=== PATIENT | female | born 1950 | race Caucasian/White ===

== ENCOUNTER 2020-02-10 07:56 | Outpatient (REF) | payer MEDICARE, SELFPAY ==
[2020-02-10 08:18] LABS: COVID-19 Test Negative (Negative)
== END 2020-02-10 07:57 | disposition home or self-care (01) ==
LOC: HO.LAB 07:56
PROVIDERS: Visit Provider Internal Medicine
DX: Z20.828 Contact with and (suspected) exposure to other viral communicable diseases (principal)
CPT/HCPCS: 87635

== ENCOUNTER 2020-05-16 06:27 | Outpatient (REF) | payer MEDICARE, SELFPAY | END 2020-05-16 06:28 | disposition home or self-care (01) | LOC: HO.LAB 06:27 | PROVIDERS: Visit Provider Internal Medicine | DX: Z20.822 Contact with and (suspected) exposure to COVID-19 (principal) | CPT/HCPCS: 36415; C9803; U0003 ==

== ENCOUNTER 2020-10-06 15:36 | Inpatient (IN) | payer MEDICARE, SELFPAY ==
[2020-10-06] VITALS (7 sets, daily range): BP systolic 133–163; BP diastolic 58–79; PULSE 69–87; RESP 16–18; TEMP 36.6–37; O2SAT 88–98; BMI 23.6
--- NOTE | 2020-10-06 | ECG_ITS ---
Test Reason : SOB Blood Pressure : / mmHG Vent. Rate : 069 BPM Atrial Rate : 069 BPM P-R Int : 164 ms QRS Dur : 072 ms QT Int : 386 ms P-R-T Axes : 079 081 070 degrees QTc Int : 413 ms Sinus rhythm with Sinus Arrhythmia Biatrial enlargement Anterior infarct (cited on or before 18-JUL-2017) Abnormal ECG When compared with ECG of 18-JUL-2017 12:20, No significant changes seen Referred By: Generic ED Physician Electronically Signed By:CUONG LOVE MD
--- NOTE | ~2020-10-06 | XR_ITS ---
EXAMINATION: XR CHEST CLINICAL INFORMATION: Shortness of breath COMPARISON: Previous chest x-ray most recent June 2017 TECHNIQUE: 2 views of the chest were obtained. FINDINGS: The cardiac and mediastinal contours are stable. The lungs are well inflated. The lungs are clear. There is no pleural effusion or pneumothorax. Bony structures are unremarkable. XR/XR chest 2V IMPRESSION: Well-inflated lungs. No evidence for acute disease in the chest.
--- NOTE | ~2020-10-06 | CT_ITS ---
EXAMINATION: CTA CHEST PE STUDY CLINICAL INFORMATION: Hypoxia etiology? COMPARISON: Chest x-ray this evening TECHNIQUE: Prior to contrast administration, noncontrast localization images were obtained. After the administration of 60 mL of Omnipaque 350 IV contrast, contiguous thin slice helical images were obtained through the thorax. Reformatted MIP images in the coronal and sagittal planes were obtained at the acquisition workstation. This CT examination was performed using dose optimization techniques as appropriate, variously including the following: *Automated exposure control *Adjustment of mA and/or kV according to patient size (this includes techniques or standardized protocols for targeted exams where dose is matched to indication/reason for exam; i.e. extremities or head) *Use of iterative reconstruction technique DLP: 229 mGy-cm. FINDINGS: The bolus timing on this study was acceptable for visualization of the pulmonary arterial tree. There are no intraluminal pulmonary arterial filling defects present to suggest pulmonary embolism. The lungs are clear. No abnormal pulmonary nodules or masses are appreciated. No significant hilar or mediastinal adenopathy. There is no evidence of pleural effusion or pneumothorax. The heart is normal in size. No evidence of ventricular septal bowing or right heart strain. Great vessels are normal. Otherwise the mediastinum is unremarkable. There is no pericardial effusion or pericardial thickening. Limited evaluation of the upper abdominal viscera is unremarkable. CT/CT angio chest PE protocol IMPRESSION: No evidence for pulmonary emboli. No focal airspace disease. VTE: Negative
--- NOTE | 2020-10-06 16:21 | PC.NURSE ---
2L NC applied. WC used.
[2020-10-06 16:58] LABS: Basophils Absolute Auto 0.1 X10*3/uL (0.0-0.2); Eosinophils Absolute Auto 0.1 X10*3/uL (0.0-0.4); Eosinophils Percent Auto 1.7 % (0-4); Hematocrit 48.3 % (37-47); Hemoglobin 15.5 g/dl (12.0-16.0); Imm Gran Abs Auto 0.01 X10*3/uL (0.00-0.03); Imm Gran Pct Auto 0.1 % (0.0-0.4); Lymphocytes Absolute Auto 1.8 X10*3/uL (1.2-4.9); Lymphocytes Percent Auto 25.5 % (20-40); MANUAL DIFF FLAG NO; Mean Corpuscular HGB Conc 32.1 g/dl (31.0-35.0); Mean Corpuscular Hemoglobin 29.4 pg (27.0-33.0); Mean Corpuscular Volume 91.5 fL (80-98); Mean Platelet Volume 10.4 fL (9.4-12.3); Monocytes Absolute Auto 0.6 X10*3/uL (0.1-1.2); Monocytes Percent Auto 8.3 % (2-11); Neutrophils Absolute Auto 4.5 X10*3/uL (2.0-8.3); Neutrophils Percent Auto 63.4 % (45-73); Platelet Count 197 X10*3/uL (160-400); Red Blood Count 5.28 X10*6/uL (4.20-5.50); Red Cell Distribution Width 13.1 % (11.0-16.0); White Blood Count 7.1 X10*3/uL (4.8-10.8)
[2020-10-06 17:33] LABS: Alanine Aminotransferase 11 U/L (0-31); Albumin Level 4.4 g/dL (3.5-5.0); Alkaline Phosphatase 101 U/L (39-117); Anion Gap 13 (12-20); Aspartate Amino Transferase 19 U/L (5-31); Bilirubin Total 0.4 mg/dL (0.0-1.0); Blood Urea Nitrogen 7 mg/dL (9-16); Calcium 9.9 mg/dL (8.4-10.2); Carbon Dioxide 36 mmol/L (22-29); Chloride 100 mmol/L (96-108); Creatinine Clr Calc Pharmacy 69.7; Estimated Glomerular Filt Rate > 60; Glucose Random 98 mg/dL (60-115); Potassium 5.5 mmol/L (3.3-5.1); Sodium 143 mmol/L (135-145); Total Protein 7.5 g/dL (6.5-8.0)
[2020-10-06 17:37] LABS: Troponin-I High Sensitivity < 3.5 ng/L (<3.5-17.0)
--- NOTE | 2020-10-06 17:42 | ED.SOB ---
HPI - SOB/Dyspnea General Chief Complaint: General Medical Stated Complaint: Stroke? Time Seen by Provider: 10/06/20 16:01 Source: patient Mode of arrival: ambulatory Limitations: no limitations History of Present Illness HPI Narrative: Patient with no known medical history chronic smoker has not seen her PCP in last 10 years seen MD in the ED 2 years ago for bronchitis, not on any medication been having for few months palpitation episode noticed left scapular pain and left arm pain for last 1 week also noticed increased shortness of breath especially on ambulation. Feels chest tight. Patient does have disc episodes of palpitation off and on without any syncope. Has off and on dizziness spells. Also for last 4 months noticed her right eye she has problem in the lateral vision and vision overall is blurred, patient wear glasses and last visit to deburr operator was 7 years ago. When patient arrived to the ER she was saturating 88% at room air. Patient denies any leg swelling syncope episode any focal weakness diaphoresis night sweats Related Data Home Medications Medication Instructions Recorded Confirmed No Known Home Meds 10/06/20 10/06/20 Allergies Allergy/AdvReac Type Severity Reaction Status Date / Time No Known Allergies Allergy Verified 10/06/20 22:17 [No Known Allergies*] Review of Systems Review of Systems: Constitutional : No Weight loss, No Fever, No Chills ENT/Mouth : No sore throat, No Rhinorrhea Eyes: No Eye Pain, No Swelling vision problem r eye+ Cardiovascular : No Chest Pain, ++ palpitations Respiratory : No Cough, No Sputum, no shortness of breath Gastrointestinal : no Nausea, No Vomiting, No Diarrhea, No abdominal Pain, no black stools Genitourinary : No Dysuria, No Urinary Frequency Musculoskeletal : No joint pain, No Myalgias, No Joint Swelling Skin : No Skin Lesions, No rash Neuro : No Weakness, No Numbness, No Dizziness, No Headache Psych : No Anxiety/Panic, No Depression Heme/Lymph: No Bruising, No Lymphadenopathy Endocrine : No Polyuria, No Polydipsia All other systems reviewed and are negative [facility] Social History Social History Advance Directives: No Advance Directives Information Provided: Yes Physical Exam Vital Signs: Vital Signs: Last Vital Signs Temp 98.1 F 10/06/20 21:53 Pulse 76 10/06/20 21:53 Resp 16 10/06/20 21:53 BP 163/70 H 10/06/20 21:53 Pulse Ox 92 10/06/20 21:53 Body Mass Index 23.6 Appearance: Alert. Oriented X3. No acute distress. Eyes: PERRLA, No Nystagmus fundus benign b/l ENT: Pharynx normal. Oral Mucosa moist Neck: Normal inspection. Neck supple. CVS: Normal heart rate and rhythm. Pulses normal. Respiratory: No respiratory distress. Equal air entry bilateral, no wheezing/rales/rhonchi Abdomen: Soft and nontender. Bowel sounds are present, no mass palpable, no CVA tenderness Skin: Skin warm and dry. Normal skin color. Normal skin turgor. Extremities: No lower extremity edema. No calf tenderness Neuro: Oriented X 3. No motor deficit. No sensory deficit.No cerebellar signs , cranial nerves II-XII intact history MDM - SOB/Dyspnea MDM Narrative Medical decision making narrative: Patient is smoker with significant shortness of breath especially on exertion normal BNP normal chest x-ray normal CTA chest no PE symptoms likely from chronic lung disease from smoking patient saturation dropped to 85% on ambulation patient does not have any oxygen at home. Will admit patient for chronic lung disease and hypoxia patient does not have any signs of infection Lab Data Attestation: I reviewed the patient's lab results. Result diagrams: 10/06/20 16:51 10/06/20 16:51 Labs: Lab Results 10/06/20 10/06/20 10/06/20 Range/Units 16:51 16:51 16:51 WBC 7.1 (4.8-10.8) X10*3/uL RBC 5.28 (4.20-5.50) X10*6/uL Hgb 15.5 (12.0-16.0) g/dl Hct 48.3 H (37-47) % MCV 91.5 (80-98) fL MCH 29.4 (27.0-33.0) pg MCHC 32.1 (31.0-35.0) g/dl RDW 13.1 (11.0-16.0) % Plt Count 197 (160-400) X10*3/uL MPV 10.4 (9.4-12.3) fL Immature Gran % (Auto) 0.1 (0.0-0.4) % Neut % (Auto) 63.4 (45-73) % Lymph % (Auto) 25.5 (20-40) % [place] % (Auto) 8.3 (2-11) % Eos % (Auto) 1.7 (0-4) % Baso % (Auto) 1.0 (0-2) % Lymph # (Auto) 1.8 (1.2-4.9) X10*3/uL [place] # (Auto) 0.6 (0.1-1.2) X10*3/uL Eos # (Auto) 0.1 (0.0-0.4) X10*3/uL Baso # (Auto) 0.1 (0.0-0.2) X10*3/uL Abs Immat Gran (auto) 0.01 (0.00-0.03) X10*3/uL Absolute Neuts (auto) 4.5 (2.0-8.3) X10*3/uL Absolute Nucleated RBC 0.000 (0.0-0.012) X10*3/uL Nucleated RBC % (auto) 0.0 (0.0-0.2) /100WBC PT (10.8-13.0) SEC INR (0.9-1.1) APTT (24.1-38.0) SEC D-Dimer NG/ML Sodium 143 (135-145) mmol/L Potassium 5.5 H (3.3-5.1) mmol/L Chloride 100 (96-108) mmol/L Carbon Dioxide 36 H (22-29) mmol/L Anion Gap 13 (12-20) BUN 7 L (9-16) mg/dL Creatinine 0.73 (0.5-1.4) mg/dL Estim Creat Clear Calc 69.7 Estimated GFR > 60 Random Glucose 98 (60-115) mg/dL Calcium 9.9 (8.4-10.2) mg/dL Total Bilirubin 0.4 (0.0-1.0) mg/dL AST 19 (5-31) U/L ALT 11 (0-31) U/L Alkaline Phosphatase 101 (39-117) U/L Troponin I High Sens < 3.5 (<3.5-17.0) ng/L B-Natriuretic Peptide (<100) pg/mL Total Protein 7.5 (6.5-8.0) g/dL Albumin 4.4 (3.5-5.0) g/dL Urine Color Urine Appearance Urine pH (5.0-8.0) Ur Specific [place] (1.005-1.025) Urine Protein (NEG-TRACE) MG/DL Urine Glucose (UA) (NEG) MG/DL Urine Ketones (NEG) MG/DL Urine Blood (NEG) Urine Nitrite (NEG) Ur Leukocyte Esterase (NEG) Urine RBC (0) /HPF Urine WBC (0-4) /HPF Ur Squamous Epith Cells /LPF Urine Bacteria /LPF Urine Mucus /LPF COVID-19 ([facility]) (Negative) COVID-19 Clin Com 10/06/20 10/06/20 10/06/20 Range/Units 16:51 18:20 20:46 WBC (4.8-10.8) X10*3/uL RBC (4.20-5.50) X10*6/uL Hgb (12.0-16.0) g/dl Hct (37-47) % MCV (80-98) fL MCH (27.0-33.0) pg MCHC (31.0-35.0) g/dl RDW (11.0-16.0) % Plt Count (160-400) X10*3/uL MPV (9.4-12.3) fL Immature Gran % (Auto) (0.0-0.4) % Neut % (Auto) (45-73) % Lymph % (Auto) (20-40) % [place] % (Auto) (2-11) % Eos % (Auto) (0-4) % Baso % (Auto) (0-2) % Lymph # (Auto) (1.2-4.9) X10*3/uL [place] # (Auto) (0.1-1.2) X10*3/uL Eos # (Auto) (0.0-0.4) X10*3/uL Baso # (Auto) (0.0-0.2) X10*3/uL Abs Immat Gran (auto) (0.00-0.03) X10*3/uL Absolute Neuts (auto) (2.0-8.3) X10*3/uL Absolute Nucleated RBC (0.0-0.012) X10*3/uL Nucleated RBC % (auto) (0.0-0.2) /100WBC PT 12.1 (10.8-13.0) SEC INR 1.0 (0.9-1.1) APTT 34.1 (24.1-38.0) SEC D-Dimer < 200 NG/ML Sodium (135-145) mmol/L Potassium (3.3-5.1) mmol/L Chloride (96-108) mmol/L Carbon Dioxide (22-29) mmol/L Anion Gap (12-20) BUN (9-16) mg/dL Creatinine (0.5-1.4) mg/dL Estim Creat Clear Calc Estimated GFR Random Glucose (60-115) mg/dL Calcium (8.4-10.2) mg/dL Total Bilirubin (0.0-1.0) mg/dL AST (5-31) U/L ALT (0-31) U/L Alkaline Phosphatase (39-117) U/L Troponin I High Sens (<3.5-17.0) ng/L B-Natriuretic Peptide 32 (<100) pg/mL Total Protein (6.5-8.0) g/dL Albumin (3.5-5.0) g/dL Urine Color YELLOW Urine Appearance CLEAR Urine pH 7.0 (5.0-8.0) Ur Specific [place] 1.010 (1.005-1.025) Urine Protein NEG (NEG-TRACE) MG/DL Urine Glucose (UA) NEG (NEG) MG/DL Urine Ketones NEG (NEG) MG/DL Urine Blood NEG (NEG) Urine Nitrite NEG (NEG) Ur Leukocyte Esterase 1+ H (NEG) Urine RBC 0-2 (0) /HPF Urine WBC 1-4 (0-4) /HPF Ur Squamous Epith Cells 2+ /LPF Urine Bacteria TRACE /LPF Urine Mucus TRACE /LPF COVID-19 ([facility]) (Negative) COVID-19 Clin Com 10/06/20 Range/Units 21:04 WBC (4.8-10.8) X10*3/uL RBC (4.20-5.50) X10*6/uL Hgb (12.0-16.0) g/dl Hct (37-47) % MCV (80-98) fL MCH (27.0-33.0) pg MCHC (31.0-35.0) g/dl RDW (11.0-16.0) % Plt Count (160-400) X10*3/uL MPV (9.4-12.3) fL Immature Gran % (Auto) (0.0-0.4) % Neut % (Auto) (45-73) % Lymph % (Auto) (20-40) % [place] % (Auto) (2-11) % Eos % (Auto) (0-4) % Baso % (Auto) (0-2) % Lymph # (Auto) (1.2-4.9) X10*3/uL [place] # (Auto) (0.1-1.2) X10*3/uL Eos # (Auto) (0.0-0.4) X10*3/uL Baso # (Auto) (0.0-0.2) X10*3/uL Abs Immat Gran (auto) (0.00-0.03) X10*3/uL Absolute Neuts (auto) (2.0-8.3) X10*3/uL Absolute Nucleated RBC (0.0-0.012) X10*3/uL Nucleated RBC % (auto) (0.0-0.2) /100WBC PT (10.8-13.0) SEC INR (0.9-1.1) APTT (24.1-38.0) SEC D-Dimer NG/ML Sodium (135-145) mmol/L Potassium (3.3-5.1) mmol/L Chloride (96-108) mmol/L Carbon Dioxide (22-29) mmol/L Anion Gap (12-20) BUN (9-16) mg/dL Creatinine (0.5-1.4) mg/dL Estim Creat Clear Calc Estimated GFR Random Glucose (60-115) mg/dL Calcium (8.4-10.2) mg/dL Total Bilirubin (0.0-1.0) mg/dL AST (5-31) U/L ALT (0-31) U/L Alkaline Phosphatase (39-117) U/L Troponin I High Sens (<3.5-17.0) ng/L B-Natriuretic Peptide (<100) pg/mL Total Protein (6.5-8.0) g/dL Albumin (3.5-5.0) g/dL Urine Color Urine Appearance Urine pH (5.0-8.0) Ur Specific [place] (1.005-1.025) Urine Protein (NEG-TRACE) MG/DL Urine Glucose (UA) (NEG) MG/DL Urine Ketones (NEG) MG/DL Urine Blood (NEG) Urine Nitrite (NEG) Ur Leukocyte Esterase (NEG) Urine RBC (0) /HPF Urine WBC (0-4) /HPF Ur Squamous Epith Cells /LPF Urine Bacteria /LPF Urine Mucus /LPF COVID-19 ([facility]) Negative (Negative) COVID-19 Clin Com See Note Imaging Data CT scan - chest: Radiologist's impression: Patient: Mayte Gomez#: [id number]: 1950Acct:[id number]/Sex: 70 / FADM Date: 10/06/20Loc: [address] Dr: Ordering Physician: Michael Pool MD Date of Service: 10/06/20 Procedure(s): CT angio chest PE protocol Accession Number(s): [id number] cc: Michael Pool MD~ EXAMINATION: CTA CHEST PE STUDY CLINICAL INFORMATION: Hypoxia etiology? COMPARISON: Chest x-ray this evening TECHNIQUE: Prior to contrast administration, noncontrast localization images were obtained. After the administration of 60 mL of Omnipaque 350 IV contrast, contiguous thin slice helical images were obtained through the thorax. Reformatted MIP images in the coronal and sagittal planes were obtained at the acquisition workstation. This CT examination was performed using dose optimization techniques as appropriate, variously including the following: *Automated exposure control *Adjustment of mA and/or kV according to patient size (this includes techniques or standardized protocols for targeted exams where dose is matched to indication/reason for exam; i.e. extremities or head) *Use of iterative reconstruction technique DLP: 229 mGy-cm. FINDINGS: The bolus timing on this study was acceptable for visualization of the pulmonary arterial tree. There are no intraluminal pulmonary arterial filling defects present to suggest pulmonary embolism. The lungs are clear. No abnormal pulmonary nodules or masses are appreciated. No significant hilar or mediastinal adenopathy. There is no evidence of pleural effusion or pneumothorax. The heart is normal in size. No evidence of ventricular septal bowing or right heart strain. Great vessels are normal. Otherwise the mediastinum is unremarkable. There is no pericardial effusion or pericardial thickening. Limited evaluation of the upper abdominal viscera is unremarkable. CT/CT angio chest PE protocol IMPRESSION: No evidence for pulmonary emboli. No focal airspace disease. VTE: Negative Dictated By:MERRY GARDINER MDSigned By:<Electronically signed by MERRY GARDINER MD in OV> ECG Data Attestation: I personally reviewed and interpreted this ECG as follows: Interpretation: Normal sinus rhythm heart rate 69 beats per minute poor progression of R-waves no acute ST T wave changes no acute ischemia Discharge Plan Discharge Clinical Impression: Exertional shortness of breath, Chronic lung disease Patient Disposition: Admitted As Inpatient
[2020-10-06] MEDS: Albuterol/Iprat 2.5/0.5MG 3 ML AMPUL.NEB INHALE (17:51)
[2020-10-06 18:32] LABS: Prothrombin Time 12.1 SEC (10.8-13.0)
[2020-10-06 18:35] LABS: Partial Thromboplastin Time 34.1 SEC (24.1-38.0)
[2020-10-06 18:37] LABS: D Dimer < 200 NG/ML
[2020-10-06 18:51] LABS: B Type Natriuretic Peptide 32 pg/mL (<100)
[2020-10-06] MEDS: methylPREDNISolone Sod Succ 125 MG/2 ML VIAL IVPUSH (19:32)
[2020-10-06] MEDS: Ketorolac Tromethamine 15 MG/ML VIAL IVPUSH (19:33)
--- NOTE | 2020-10-06 19:50 | PC.NURSE ---
Patient ambulated with steady gait to bathroom and back, but reports feeling unsteady . Trialed patient on room air, oxygen saturation dropped to 85% on room air. aware/notified. Likely plan for admission.
[2020-10-06] MEDS: iohexoL 350 MG/ML 100 ML INFUS..BTL IV (20:23)
[2020-10-06 20:55] LABS: Glucose Urine UA NEG (NEG); Leukocyte Esterase Urine 1+ (NEG); Nitrite Urine NEG (NEG); UACC Culture Trigger YES; Urine Blood NEG (NEG); Urine Ketones NEG (NEG); Urine Protein NEG (NEG-TRACE)
[2020-10-06 20:57] LABS: Appearance Urine CLEAR; Color Urine YELLOW
[2020-10-06 21:05] LABS: Bacteria Urine TRACE /LPF; Mucus Urine TRACE /LPF; RBC Urine 0-2 /HPF (0); Squamous Epithelial Cell Urine 2+ /LPF
[2020-10-06 21:27] LABS: COVID-19 Test Negative (Negative)
--- NOTE | 2020-10-06 22:24 | PM.IMHP ---
History of Present Illness Date of Service: 10/06/20 Chief Complaint: Shortness of breath 70-year-old female with a past medical history of tobacco dependence presented to the hospital with a chief complaint of shortness of breath. Patient reports that over the past few days she has been having shortness of breath which has been gradually worsening; worse on exertion. Patient also reports she has intermittent episodes of dizziness. Patient reported that over the past 4 months she has been having blurry vision with black spots in her right eye occasionally; denies any headaches numbness to. Denies any numbness or tingling. Patient also reported she has pain on the back of her left shoulder; Denies any fall loss of consciousness. Mentions that she had COVID vaccination done. Denies any sore throat. Denies any recent travel or sick contacts. Reports she smokes cigarettes daily. Denies any alcohol or illicit drug use. Review of all other systems is negative except mentioned above ER course: Per ER team patient's exam was benign; CTA chest showed no acute findings. Patient on ambulation was saturating 85% on room air; admitted to the hospital for further management PMFSH Social History Household Members: None Housing: Apartment Do you presently have visiting nurse or other home services: No Patient Tobacco Use Status: Current someday Tobacco user Tobacco use type: Cigarette Cigarette Packs Per Day: 1 Cigarettes Per Day: 20.0 service: No Current occupational status: retired Meds Allergies Allergy/AdvReac Type Severity Reaction Status Date / Time No Known Allergies Allergy Verified 10/06/20 22:17 [No Known Allergies*] Active Medications: Current Medications Generic Name Dose Route Start Last Admin Trade Name Freq PRN Reason Stop Dose Admin Acetaminophen 650 mg 10/06/20 22:19 Acetaminophen 325 Mg Tablet PO Q6H PRN Pain, Mild (Pain Scale 1-3) Albuterol/Ipratropium 3 ml 10/07/20 08:00 Albuterol/Iprat 2.5/0.5mg 3 Ml Ampul.Neb INHALE RQ4H WHILE AWAKE OSCAR Albuterol/Ipratropium 3 ml 10/06/20 22:19 Albuterol/Iprat 2.5/0.5mg 3 Ml Ampul.Neb INHALE RQ4H PRN Shortness of Breath/Wheezing Enoxaparin Sodium 40 mg 10/06/20 22:30 Enoxaparin Sodium 40 Mg/0.4 Ml Syringe SUBCUT Q24H [facility] Famotidine 20 mg 10/07/20 21:00 Famotidine 20 Mg Tablet PO BEDTIME [facility] Methylprednisolone Sodium Succinate 40 mg 10/06/20 22:30 Methylprednisolone Sod Succ 40 Mg/Ml Vial IVPUSH Q8H [facility] Sodium Chloride 3 ml 10/07/20 00:00 0.9 % Sodium Chloride Flush 3 Ml Syringe IVFLUSH QSHIFT [facility] Physical Exam Vital Signs and Narrative: Vital Signs: Last Vital Signs Temp 98.1 F 10/06/20 21:53 Pulse 76 10/06/20 21:53 Resp 16 10/06/20 21:53 BP 163/70 H 10/06/20 21:53 Pulse Ox 92 10/06/20 21:53 Body Mass Index 23.6 Gen: Appears be in no acute distress HEENT: NCAT, Moist mucosa. Pulmonary: Slightly diminished CVS: Normal S1-S2 Abdomen: BS+, Soft, Nontender Extremities: Warm well perfused Neuro: Alert and awake. Results Labs CBC and Chem 7: 10/07/20 04:32 10/07/20 04:32 Labs: Laboratory Results - last 24 hr 10/06/20 10/06/20 10/06/20 16:51 16:51 16:51 MCV 91.5 MCH 29.4 MCHC 32.1 RDW 13.1 Plt Count 197 MPV 10.4 Immature Gran % (Auto) 0.1 Neut % (Auto) 63.4 Lymph % (Auto) 25.5 [place] % (Auto) 8.3 Eos % (Auto) 1.7 Baso % (Auto) 1.0 Lymph # (Auto) 1.8 [place] # (Auto) 0.6 Eos # (Auto) 0.1 Baso # (Auto) 0.1 Abs Immat Gran (auto) 0.01 Absolute Neuts (auto) 4.5 Absolute Nucleated RBC 0.000 Nucleated RBC % (auto) 0.0 PT INR APTT D-Dimer Anion Gap 13 Estim Creat Clear Calc 69.7 Estimated GFR > 60 Random Glucose 98 Calcium 9.9 Total Bilirubin 0.4 AST 19 ALT 11 Alkaline Phosphatase 101 Troponin I High Sens < 3.5 B-Natriuretic Peptide Total Protein 7.5 Albumin 4.4 Urine Color Urine Appearance Urine pH Ur Specific [place] Urine Protein Urine Glucose (UA) Urine Ketones Urine Blood Urine Nitrite Ur Leukocyte Esterase Urine RBC Urine WBC Ur Squamous Epith Cells Urine Bacteria Urine Mucus COVID-19 ([facility]) COVID-19 Opendisc Com 10/06/20 10/06/20 10/06/20 16:51 18:20 20:46 MCV MCH MCHC RDW Plt Count MPV Immature Gran % (Auto) Neut % (Auto) Lymph % (Auto) [place] % (Auto) Eos % (Auto) Baso % (Auto) Lymph # (Auto) [place] # (Auto) Eos # (Auto) Baso # (Auto) Abs Immat Gran (auto) Absolute Neuts (auto) Absolute Nucleated RBC Nucleated RBC % (auto) PT 12.1 INR 1.0 APTT 34.1 D-Dimer < 200 Anion Gap Estim Creat Clear Calc Estimated GFR Random Glucose Calcium Total Bilirubin AST ALT Alkaline Phosphatase Troponin I High Sens B-Natriuretic Peptide 32 Total Protein Albumin Urine Color YELLOW Urine Appearance CLEAR Urine pH 7.0 Ur Specific [place] 1.010 Urine Protein NEG Urine Glucose (UA) NEG Urine Ketones NEG Urine Blood NEG Urine Nitrite NEG Ur Leukocyte Esterase 1+ H Urine RBC 0-2 Urine WBC 1-4 Ur Squamous Epith Cells 2+ Urine Bacteria TRACE Urine Mucus TRACE COVID-19 ([facility]) COVID-19 Opendisc Com 10/06/20 21:04 MCV MCH MCHC RDW Plt Count MPV Immature Gran % (Auto) Neut % (Auto) Lymph % (Auto) [place] % (Auto) Eos % (Auto) Baso % (Auto) Lymph # (Auto) [place] # (Auto) Eos # (Auto) Baso # (Auto) Abs Immat Gran (auto) Absolute Neuts (auto) Absolute Nucleated RBC Nucleated RBC % (auto) PT INR APTT D-Dimer Anion Gap Estim Creat Clear Calc Estimated GFR Random Glucose Calcium Total Bilirubin AST ALT Alkaline Phosphatase Troponin I High Sens B-Natriuretic Peptide Total Protein Albumin Urine Color Urine Appearance Urine pH Ur Specific [place] Urine Protein Urine Glucose (UA) Urine Ketones Urine Blood Urine Nitrite Ur Leukocyte Esterase Urine RBC Urine WBC Ur Squamous Epith Cells Urine Bacteria Urine Mucus COVID-19 ([facility]) Negative COVID-19 Clin Com See Note Imaging Radiologist's Impressions: Impressions Chest X-Ray 10/06/20 16:40 IMPRESSION: Well-inflated lungs. No evidence for acute disease in the chest. Chest CTA 10/06/20 19:56 IMPRESSION: No evidence for pulmonary emboli. No focal airspace disease. VTE: Negative Assessment and Plan (1) Hypoxia: Status: Acute 70-year-old female with a past medical history tobacco dependence presented to the hospital with a chief complaint of shortness of breath. Shortness of breath: Patient has slightly diminished breath sounds. Patient has tobacco dependence. Question mild COPD. Will keep the patient on Solu-Medrol and nebulizations. Pulmonology consult. Initial troponin negative; follow-up troponin pending EKG nonischemic. Patient currently denies any chest pain. Patient pain on the left shoulder blade use reproducible. Likely musculoskeletal. Will also obtain an echocardiogram. COVID-[address] chest negative for any pulmonary embolism or pneumonia. Dizziness: PT/OT eventually. Grossly nonfocal exam. Will obtain MRI brain and MRA head and neck. Blurry vision: Patient reports her symptoms have been going on for past 4 months. Denies any eye pain. Recommended close follow-up with Ophthalmology. DVT prophylaxis: Lovenox Code status: Full code
[2020-10-07] VITALS (12 sets, daily range): BP systolic 124–151; BP diastolic 58–81; PULSE 68–120; RESP 18–20; TEMP 36.1–36.7; O2SAT 90–106
[2020-10-07] MEDS: methylPREDNISolone Sod Succ 40 MG/ML VIAL IVPUSH ×4 (00:47→21:38)
[2020-10-07] MEDS: Enoxaparin Sodium 40 MG/0.4 ML SYRINGE SUBCUT ×2 (00:47→21:38)
[2020-10-07] MEDS: 0.9 % Sodium Chloride Flush 3 ML SYRINGE IVFLUSH ×3 (00:47→21:39)
[2020-10-07 05:25] LABS: Basophils Percent Auto 0.3 % (0-2); Hematocrit 51.8 % (37-47); Hemoglobin 16.3 g/dl (12.0-16.0); Imm Gran Abs Auto 0.02 X10*3/uL (0.00-0.03); Imm Gran Pct Auto 0.3 % (0.0-0.4); Lymphocytes Absolute Auto 0.7 X10*3/uL (1.2-4.9); Lymphocytes Percent Auto 9.9 % (20-40); MANUAL DIFF FLAG SCAN; Mean Corpuscular HGB Conc 31.5 g/dl (31.0-35.0); Mean Corpuscular Hemoglobin 28.8 pg (27.0-33.0); Mean Corpuscular Volume 91.5 fL (80-98); Mean Platelet Volume 10.7 fL (9.4-12.3); Monocytes Percent Auto 0.6 % (2-11); Neutrophils Absolute Auto 6.1 X10*3/uL (2.0-8.3); Neutrophils Percent Auto 88.9 % (45-73); Platelet Count 229 X10*3/uL (160-400); Red Blood Count 5.66 X10*6/uL (4.20-5.50); SCAN SMEAR FLAG 1; White Blood Count 6.9 X10*3/uL (4.8-10.8)
[2020-10-07 05:52] LABS: SLIDE REVIEW VERIFIED
[2020-10-07 05:57] LABS: Alanine Aminotransferase 16 U/L (0-31); Albumin Level 4.6 g/dL (3.5-5.0); Alkaline Phosphatase 105 U/L (39-117); Anion Gap 20 (12-20); Aspartate Amino Transferase 21 U/L (5-31); Bilirubin Total 0.4 mg/dL (0.0-1.0); Blood Urea Nitrogen 12 mg/dL (9-16); Calcium 9.7 mg/dL (8.4-10.2); Carbon Dioxide 28 mmol/L (22-29); Chloride 97 mmol/L (96-108); Cholesterol 302 mg/dL; Creatinine Clr Calc Pharmacy 64.4; Estimated Glomerular Filt Rate > 60; Glucose Random 159 mg/dL (60-115); HDL Cholesterol 73 mg/dL; LDL Cholesterol Calculated 215 mg/dl; Potassium 4.7 mmol/L (3.3-5.1); Sodium 140 mmol/L (135-145); Triglycerides 71 mg/dL
[2020-10-07 06:17] LABS: Thyroid Stimulating Hormone 1.86 uIU/mL (0.32-4.0)
[2020-10-07] MEDS: Albuterol/Iprat 2.5/0.5MG 3 ML AMPUL.NEB INHALE ×4 (08:52→20:08)
[2020-10-07 08:57] LABS: Estimated Average Glucose 114 mg/dL; Hemoglobin A1c % 5.6 %
--- NOTE | 2020-10-07 10:27 | HO.PM.IMPN ---
Subjective Subjective Date of Service: 10/07/20 Interval History: sob present but improved from initial presentation Cardiovascular Cardiovascular: Reports no additional cardiovascular complaints Gastrointestinal Gastrointestinal: Reports no additional gastrointestinal complaints Physical Exam Vital Signs: Vital Signs: Last Vital Signs Temp 98.1 F 10/07/20 00:13 Pulse 70 10/07/20 08:53 Resp 18 10/07/20 02:43 BP 147/70 H 10/07/20 02:43 Pulse Ox 92 10/07/20 02:43 Body Mass Index 23.6 General: AO X 3, no acute distress Resp: diminished CVS: S1,S2,RRR GI: soft, non tender, non distended Neuro: motor grossly intact Psych: appropriate affect Objective Data Current Medications Generic Name Dose Route Start Last Admin Trade Name Freq PRN Reason Stop Dose Admin Acetaminophen 650 mg 10/06/20 22:19 Acetaminophen 325 Mg Tablet PO Q6H PRN Pain, Mild (Pain Scale 1-3) Albuterol/Ipratropium 3 ml 10/07/20 08:00 10/07/20 08:52 Albuterol/Iprat 2.5/0.5mg 3 Ml Ampul.Neb INHALE 3 ml RQ4H WHILE AWAKE [place]SCAR Administration Albuterol/Ipratropium 3 ml 10/06/20 22:19 Albuterol/Iprat 2.5/0.5mg 3 Ml Ampul.Neb INHALE Q4H PRN Shortness of Breath/Wheezing Enoxaparin Sodium 40 mg 10/06/20 22:30 10/07/20 00:47 Enoxaparin Sodium 40 Mg/0.4 Ml Syringe SUBCUT 40 mg Q24H [facility] Administration Famotidine 20 mg 10/07/20 21:00 Famotidine 20 Mg Tablet PO BEDTIME [facility] Methylprednisolone Sodium Succinate 40 mg 10/06/20 22:30 10/07/20 06:30 Methylprednisolone Sod Succ 40 Mg/Ml Vial IVPUSH 40 mg Q8H [facility] Administration Sodium Chloride 3 ml 10/07/20 00:00 10/07/20 10:04 0.9 % Sodium Chloride Flush 3 Ml Syringe IVFLUSH Not Given QSHIFT [facility] Labs CBC & Chem 7: 10/07/20 04:32 10/07/20 04:32 Assessment and Plan (1) Chronic lung disease: Status: Acute (2) Hypoxia: Status: Acute Assessment and Plan: 70F presented with sob acute hypoxic respiraotry failure due to copd exacerbation steroids, bronchodilators wean o2 as tolerated smoking cessation
--- NOTE | 2020-10-07 11:19 | PM.EVENT ---
Event Note Date of Service: 10/07/20 Event Note: PULMONARY NOTE. I WAS ASKEDTO SEE THIS PATIENT FOR PULMONARY CONSULT. I HAVE SEEN HER EXAM, EXAMINED AND REVIEWED LAB AND CHEST X-RAY. COMPLETE CONSULTATION NOTE DICTATED. A: MILD ACUTE EXACERBATION OF COPD. HISTORY OF SMOKING MILD POLYCYTHEMIA PROBABLY SECONDARY TO SMOKE. p; SHE CAN BE TREATED WITH IV SOLU-MEDROL FOR 24 HOURS FOLLOWED BY PREDNISONE 40 MG A DAY FOR 5 DAYS. THIS NO INDICATION FOR ANTIBIOTIC COVERAGE AT THIS TIME. WEAN OFF OXYGEN O2 SAT IMPROVED. MAY BE DISCHARGED HOME ON ALBUTEROL HFA 2 PUFFS Q.4-6 HOURS P.R.N.. SHE WOULD NEED FOLLOW-UP OUTPATIENT AND WOULD HAVE PULMONARY FUNCTION TEST, THEN DECIDE IF SHE NEEDS LONG-ACTING BDs .
--- NOTE | 2020-10-07 11:20 | CA_ITS ---
Transthoracic Echocardiogram Patient (Last, First, Middle): Mayte Gomez Teresa Gender: Female Date of : 1950 Age: 70 Procedure Date: 10/07/2020 Procedure Type: Transthoracic Echocardiogram Location: ER Height: 170.18 cm Weight: 68.49 kg BSA: 1.79 m2 Heart Rate: bpm BP: 124 / 69 mmHg Respiratory Coordinator: ABHI Gonzalez MD: Jac Johnson MD Breeder Service Technician: Fran Guzman MD Symptoms: sob Study Quality: Technically Difficult ECG Rhythm: Sinus Conclusions: - 1. Hyperdynamic LV systolic function with LVEF greater than 70% with impaired relaxation filling pattern with suggestion of dynamic obstructive disease at the LV outflow without any evidence of focal hypertrophy. 2. Limited evaluation of cardiac valves with within normal limits cardiac valvular Doppler 3. Normal RV systolic pressure 4. No pericardial effusion Findings Left Ventricle Normal left ventricular cavity size. There is normal left ventricular wall thickness. The left ventricular systolic function is hyperdynamic. The visually estimated ejection fraction is >70%. Regional wall motion abnormalities can not be excluded due to suboptimal endocardial definition. Spectral Doppler is indicative of an impaired relaxation filling pattern. E/E prime ratio is between 8 and 15 consistent with indeterminate filling pressures. there is mildly elevated gradient across the LVOT with Doppler envelope consistent with late systolic obstruction Right Ventricle The right ventricle was not well visualized. Atria The left atrium is normal in size. Interatrial shunt cannot be excluded. The right atrium was not well visualized. Aortic Valve The aortic valve structure and function is likely normal. There is no aortic valve stenosis. There is no aortic valve regurgitation. Mitral Valve Likely normal mitral valve structure and function. There is trace mitral valve regurgitation. There is no mitral valve stenosis. Pulmonic Valve The pulmonic valve was not well visualized. Tricuspid Valve Likely normal tricuspid valve structure and function. There is trace tricuspid valve regurgitation. The right ventricular systolic pressure is normal. The right ventricular systolic pressure is 16 mmHg. Normal right atrial pressure. There is no evidence of pulmonary hypertension. Great Vessels All visible segments of the aorta are normal in size. The pulmonary artery was not well visualized. Venous The inferior vena cava is normal in size and collapses greater than 50% with inspiration. Pericardium/Pleural There is no evidence of pericardial effusion. Prior Study Comparison No prior study available for comparison. Measurements 2D Linear Measurements IVSd: 1.02 0.6-0.9/0.6-1.0 cm LVIDd: 3.24 3.9-5.3/4.2-5.9 cm LVIDd Index: 1.81 2.4-3.2/2.2-3.1 cm/m2 LVIDs: 2.29 2.0-3.6 cm LVPWd: 1.03 0.7-1.1 cm Ao Root: 3.20 2.1-3.5 cm LA Diam: 2.50 2.7-3.8/3.0-4.0 cm LAIDs Index: 1.40 1.5-2.3 cm/m2 LV Mass: 118.58 67-162/88-224 g LV Mass Index: 66.25 43-95/49-115 g/m2 LVOT Diam: 2.30 3.0+(-)1.3 cm Mitral Valve MV Pk E: 0.82 MV PK A: 1.14 MV Decel Time: 110.00 E/A: 0.70 E'Lateral: 8.59 E'Medial: 7.29 E/E' Med: 11.30 E/E' Lat: 9.60 PHT: 32.00 MVA PHT: 6.88 Decel [place]: 7.43 Aortic Valve AoV Pk Judah: 2.07 AoV Mn Judah: 1.39 AoV VTI: 0.38 AoV Pk Grad: 17.00 Aov Mn Grad: 9.00 GERTRUDE Cont.VTI: 3.43 LVOT LVOT Pk Judah: 1.89 LVOT Mn Judah: 1.46 LVOT VTI: 0.31 LVOT Pk Grad: 14.00 LVOT Mn Grad: 10.00 LVOT Diam: 2.30 LVOT Area: 4.15 Diastolic Function MV Pk E: 0.82 MV Pk A: 1.14 E/A: 0.70 E'Medial: 7.29 E/E' Med: 11.30 E' Laterial: 8.59 E/E' Lat: 9.60 Tricuspid Valve TR Pk Judah: 1.82 TR Pk Grad: 13.00 RA Press: 3.00 RVSP: 16.00 Great Vessels Aorta Ao Root-2D: 3.20 2.0-3.7 cm Ao Asc: 2.80 2.1-3.4 cm Ao Arch: 2.60 Updated in Other Vendor System with Status of Final Frna Guzman MD electronically signed on 10/07/2020 3:06:28 PM with status of Final
--- NOTE | 2020-10-07 12:26 | CONS_ITS ---
DATE OF SERVICE: 10/07/2020 HISTORY OF PRESENT ILLNESS: This 70-year-old female generally in good health, has presented to the emergency room because for the past 3 to 4 days, she is having increased cough and shortness of breath. Cough is minimal, mostly dry and nonproductive, but her shortness of breath was not getting any better, rather slowly worse. She has had no fever, chills, or chest pain. In addition, for the past few months, she has had nonspecific symptoms of blurry vision, general weakness. No headache, no paresthesias, and no weakness in the limbs. Recently, she has had COVID vaccine completed. The patient stopped smoking about 4 days ago and was thinking that her symptoms would get worse, which did not, so she presented to the emergency room. PAST MEDICAL HISTORY: Not remarkable in her case. REVIEW OF SYSTEMS: Includes the above symptoms as described and she has mild discomfort in the left shoulder area. No chronic back pain. The patient has history of smoking 1 pack a day throughout her adult life, and quit only less than 1 week ago. PHYSICAL EXAMINATION: GENERAL: This 70-year-old female is very pleasant. She is lying down in the bed, very comfortable. VITAL SIGNS: Respiratory rate 16, temperature is normal. EAR, NOSE, THROAT: Examination is normal. NECK: No jugular venous distention. Trachea midline. No lymphadenopathy. CHEST: Symmetrical. Percussion note is resonant. Breath sounds are somewhat distant and I did not hear any scattered or localized wheezes or crepitations in her case. CARDIAC: Sounds are normal. EXTREMITIES: No edema or varicosities. Peripheral pulses are normal. LABORATORY DATA: Workup: The COVID test is negative. Chest x-ray is normal. No significant abnormalities noted. CTA of the chest negative for pulmonary embolism and there is no localized consolidation or mass or lymphadenopathy. CLINICAL IMPRESSION: 1. History of long-time smoking. 2. Hemoglobin and hematocrit are slightly up indicating mild polycythemia, probably chronic to long-term smoking. 3. Mild acute exacerbation of chronic obstructive pulmonary disease. RECOMMENDATIONS: I think this patient should get better with a short course of steroids. After 1 day on IV Solu-Medrol, she can be switched to prednisone 40 mg a day for 5 days. DuoNeb updrafts q.4-6 hours p.r.n. Oxygen 2 L/minute only p.r.n. to keep O2 saturation above 90%. Smoking cessation. The patient could be discharged home in a day or two and she would need pulmonary followup as outpatient when we can order a pulmonary function test and advice her for ongoing management. Thank you very much for asking me to see this patient. MD LANDRY Fisher/BRANDON / [phone]
--- NOTE | 2020-10-07 13:37 | PC.NURSE ---
attempted to give report, was transferred to another line and no answer, will call back in a bit
--- NOTE | 2020-10-07 13:40 | PC.NURSE ---
PT AOX4 TOLERATING PO, AMB OOB WITH STEADY GAIT. BEDSIDE ECHO COMPLETE, NEEDS BEING MET
[2020-10-07] MEDS: Nicotine 21 MG PATCH.TD24 TRANSDERMA (17:36)
--- NOTE | 2020-10-07 18:40 | PC.NURSE ---
Patient's HR sustaining in the 120s-130s, patient reports feeling a little dizzy and that her heart feels like its racing a little bit. Hospitalist notified. No orders at this time.
[2020-10-07] MEDS: Famotidine 20 MG TABLET PO (21:39)
[2020-10-08] VITALS: BP 130/66; PULSE 99; RESP 18; TEMP 37; O2SAT 93
[2020-10-08] MEDS: Acetaminophen 325 MG TABLET 650 MG PO (01:54)
[2020-10-08 04:00] VITALS: BP 135/65; PULSE 84; RESP 18; TEMP 36.6; O2SAT 93
[2020-10-08] MEDS: methylPREDNISolone Sod Succ 40 MG/ML VIAL IVPUSH ×2 (05:57→14:19)
[2020-10-08 07:34] VITALS: BP 142/74; PULSE 76; RESP 20; TEMP 36.5; O2SAT 93
[2020-10-08] MEDS: Nicotine 21 MG PATCH.TD24 TRANSDERMA (08:32)
[2020-10-08] MEDS: 0.9 % Sodium Chloride Flush 3 ML SYRINGE IVFLUSH ×2 (08:36→14:21)
[2020-10-08] MEDS: Albuterol/Iprat 2.5/0.5MG 3 ML AMPUL.NEB INHALE (11:02)
[2020-10-08 11:09] VITALS: PULSE 86; O2SAT 90
[2020-10-08 11:40] VITALS: BP 132/63; PULSE 98; RESP 19; TEMP 36.6; O2SAT 90
--- NOTE | 2020-10-08 13:27 | P.CNNE_ITS ---
History of Present Illness Data of Consult Service Date: 10/08/20 Primary Care Provider: Kisha Arredondo MD 70 years old woman who came to hospital with shortness of breath a diagnosis of COPD also complained of dizziness. She stated that she was having a headache almost daily and has been having headaches for number of years. She reported seeing black spots in front of her eyes of blurred vision that happened 2 months ago. Otherwise there was no acute neurological symptoms that she reported. Review of Systems Review of Systems: Shortness of breath on admission she also complained of frequent headaches. [facility] Social History Social History Household Members: None Housing: Apartment Do you presently have visiting nurse or other home services: No Patient Tobacco Use Status: Current someday Tobacco user Tobacco use type: Cigarette Cigarette Packs Per Day: 1 Cigarettes Per Day: 20.0 Meds Allergies Allergy/AdvReac Type Severity Reaction Status Date / Time No Known Allergies Allergy Verified 10/06/20 22:17 [No Known Allergies*] Active Medications: Current Medications Generic Name Dose Route Start Last Admin Trade Name Freq PRN Reason Stop Dose Admin Acetaminophen 650 mg 10/06/20 22:19 10/08/20 01:54 Acetaminophen 325 Mg Tablet PO 650 mg Q6H PRN Administration Pain, Mild (Pain Scale 1-3) Albuterol/Ipratropium 3 ml 10/07/20 08:00 10/08/20 11:02 Albuterol/Iprat 2.5/0.5mg 3 Ml Ampul.Neb INHALE 3 ml RQ4H WHILE AWAKE OSCAR Administration Albuterol/Ipratropium 3 ml 10/06/20 22:19 Albuterol/Iprat 2.5/0.5mg 3 Ml Ampul.Neb INHALE Q4H PRN Shortness of Breath/Wheezing Enoxaparin Sodium 40 mg 10/06/20 22:30 10/07/20 21:38 Enoxaparin Sodium 40 Mg/0.4 Ml Syringe SUBCUT 40 mg Q24H OSCAR Administration Famotidine 20 mg 10/07/20 21:00 10/07/20 21:39 Famotidine 20 Mg Tablet PO 20 mg BEDTIME OSCAR Administration Methylprednisolone Sodium Succinate 40 mg 10/06/20 22:30 10/08/20 05:57 Methylprednisolone Sod Succ 40 Mg/Ml Vial IVPUSH 40 mg Q8H OSCAR Administration Nicotine 21 mg 10/07/20 15:55 10/08/20 08:32 Nicotine 21 Mg Patch.Td24 TRANSDERMA 21 mg DAILY OSCAR Administration Sodium Chloride 3 ml 10/07/20 00:00 10/08/20 08:36 0.9 % Sodium Chloride Flush 3 Ml Syringe IVFLUSH 3 ml QSHIFT OSCAR Administration Home Medications Medication Instructions Recorded Confirmed Last Taken Type No Known Home Meds 10/06/20 10/06/20 Unknown History Physical Exam Vital Signs: Vital Signs: Last Vital Signs Temp 97.9 F 10/08/20 11:40 Pulse 98 10/08/20 11:40 Resp 19 10/08/20 11:40 BP 132/63 10/08/20 11:40 Pulse Ox 90 L 10/08/20 11:40 Body Mass Index 23.6 Alert and awake with normal spontaneity of speech fluency comprehension and affect. Face was symmetrical. Extraocular muscles were intact. Visual santana are full to threat. Face was symmetrical. There was no pronator drift. Deep tendon reflexes were trace to absent with flexor plantars. Results Labs CBC & Chem 7: 10/07/20 04:32 10/07/20 04:32 Microbiology Microbiology Results: Microbiology 10/06/20 20:40 Urine clean catch - Clean Catch Midstream Urine Culture - Final Assessment and Plan (1) Headache: Qualifiers: Headache type: unspecified Headache chronicity pattern: unspecified pattern Intractability: not intractable Qualified Code(s): R51.9 - Headache, unspecified Status: Acute Probably chronic migraine headaches with migraine related blurred vision. In her age she should also see an water quality assistant to rule out any ophthalmol ogical condition causing blurred vision including glaucoma or corneal disease or retinal disease. In case of migraine, I would expect relatively benign eye examination. As far as headaches are concerned, a medicine for control can be prescribed but I would consider that after an ophthalmological evaluation and after ruling out eye conditions causing blurred vision and headache. Procedures Date of Service Date of Service: 10/08/20
[2020-10-08 13:38] VITALS: PULSE 101; PULSE 96; O2SAT 88; O2SAT 92
--- NOTE | 2020-10-08 13:58 | P.DS_ITS ---
DS: Providers Provider Date of Service: 10/08/20 Date of admission: 10/06/20 22:19 Primary care physician: Kisha Arredondo MD Consults: 10/06/20 22:19 Consult to Pulmonology Routine Consulting Provider: Lennox Rondon Reason for consultation: hypoxia 10/06/20 22:30 Consult to Neurology Routine Consulting Provider: [facility] Reason for consultation: Dizziness; headache; blurry vision DS: Diagnosis Discharge Diagnosis (1) Headache: Status: Acute (2) Chronic lung disease: Status: Acute (3) Hypoxia: Status: Acute Problem details: Acute (4) COPD exacerbation: Status: Acute DS: Medications Discharge Medications Home Medications: Previous Rx's Medication Instructions Recorded albuterol sulfate [ProAir HFA] 1 inh INHALATION QID PRN #8.5 g 10/08/20 prednisone 40 mg PO DAILY #10 tab 10/08/20 DS: Summary Hospital Course Hospital Course: Patient was admitted for acute hypoxic respiratory failure secondary to COPD exacerbation. She was given steroids and bronchodilators. Symptoms significantly improved and she is feeling close to baseline. She was evaluated for home oxygen and did require 4 L nasal cannula continuous. She will be going home with home oxygen. She was advised not to smoke around her oxygen as this could lead to explosion and injury. Patient will have 5 more days of p.o. prednisone and follow up with Pulmonary. Time Spent with Patient Time attestation: Total time spent providing and/or coordinating discharge services: Discharge coordination time: Greater than 30 minutes Quality: Stroke Does the patient have a stroke diagnosis?: No Physical Exam Vital Signs: Vital Signs: Last Vital Signs Temp 97.9 F 10/08/20 11:40 Pulse 98 10/08/20 11:40 Resp 19 10/08/20 11:40 BP 132/63 10/08/20 11:40 Pulse Ox 90 L 10/08/20 11:40 Body Mass Index 23.6 General: AO X 3, no acute distress Resp: diminished CVS: S1,S2,RRR GI: soft, non tender, non distended Neuro: motor grossly intact Psych: appropriate affect Discharge Plan Discharge Patient Disposition: Home, Self-Care Discharge Diagnosis: copd Referrals: Lennox Rondon MD [Physician] - 1 Week Kisha Arredondo MD [Primary Care Provider] - 1 Week Discharge Medications: New albuterol sulfate [ProAir HFA] 90 mcg/actuation HFA aerosol inhaler 1 inh inhalation QID PRN (Reason: shortness of breath or wheezing) Qty: 8.5 RF: 0 prednisone 20 mg tablet 40 mg PO DAILY Qty: 10 RF: 0 Discharge Orders: Discharge Order (Routine); Ordered 10/08/20 Ordered By: Jomar Ruelas Diet: advance to usual diet Activity on Discharge: As tolerated Stand Alone Forms: Patient Portal Discharge page Care Plan Goals: recovery Health Concerns: copd Plan of Treatment: prednisone, home oxygen - do not smoke around oxygen it can explode and kill you, follow up with pulmonary Assessment: see above
--- NOTE | 2020-10-08 14:48 | MHC.CM.PN ---
CM MET WITH PT AND HER FRIEND, DOUG, WHO WAS AT BEDSIDE. 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 PT REPORTS SHE HAS NO DME AND NO HOME SERVICES. PT COMPLETED A NEW HCP TODAY NAMING HER FRIEND, DOUG CANAS, THE AGENT. PT CONFIRMS HER PCP IS LAKESHA POTTER. IMM DELIVERED PT WILL DC HOME TODAY WITH NEW O2. PTS FRIEND WILL DRIVE HER HOME. RT CURRENTLY WORKING TO ARRANGE HOME O2 DELIVERY, PT IS AWARE SHE MUST WAIT FOR THAT TO BE COMPLETE AND FOR A LOANER TANK TO BE BROUGHT.
== END 2020-10-08 15:30 | disposition home or self-care (01) | DRG 190 ==
LOC: HO.ED 18:26 → HO.EDOVER 22:30 → HO.IMC 10-07 12:09
PROVIDERS: Admitting Provider Hospitalist; Emergency Provider Internal Medicine; PCP Internal Medicine; Visit Provider Internal Medicine
DX: J44.1 Chronic obstructive pulmonary disease with (acute) exacerbation (principal); J96.01 Acute respiratory failure with hypoxia; G43.909 Migraine, unspecified, not intractable, without status migrainosus; F17.210 Nicotine dependence, cigarettes, uncomplicated; Z71.6 Tobacco abuse counseling; Z20.822 Contact with and (suspected) exposure to COVID-19
CPT/HCPCS: 36415; 71046; 71275; 80053; 80061; 81001; 81003; 83036; 83735; 83880; 84443; 84484; 85025; 85379; 85610; 85730; 87086; 87635; 93005; 93306; 94640; 94645; 99285; J1650; J1885; J2920; J2930; Q9967

== ENCOUNTER → 2020-10-23 13:29 | Outpatient (BNVA) | payer MEDICARE, SELFPAY | PROVIDERS: PCP Internal Medicine; Visit Provider Internal Medicine | DX: J44.1 Chronic obstructive pulmonary disease with (acute) exacerbation (principal); J98.4 Other disorders of lung; R09.02 Hypoxemia; E78.5 Hyperlipidemia, unspecified; Z87.891 Personal history of nicotine dependence | CPT/HCPCS: 99212 ==

== ENCOUNTER 2020-10-26 10:33 | Outpatient (REF) | payer MEDICARE, SELFPAY ==
--- NOTE | ~2020-10-26 | CT_ITS ---
EXAMINATION: CT HEAD WITHOUT CONTRAST CLINICAL INFORMATION: Pain. COMPARISON: None TECHNIQUE: Contiguous axial imaging was performed from the skull base to vertex without intravenous administration of contrast. This CT examination was performed using dose optimization techniques as appropriate, variously including the following: *Automated exposure control *Adjustment of mA and/or kV according to patient size (this includes techniques or standardized protocols for targeted exams where dose is matched to indication/reason for exam; i.e. extremities or head) *Use of iterative reconstruction technique DLP: 711 mGy-cm FINDINGS: There is no evidence of acute intracranial hemorrhage or territorial infarction. No abnormal mass effect or midline shift is seen. Tirado to white matter differentiation is well preserved. No extra-axial fluid collections are identified. The ventricles are normal in size. There is no abnormal attenuation within the brain parenchyma. The osseous structures and soft tissues are normal. The mastoid air cells and visualized portions of the paranasal sinuses are well aerated. CT/CT head/brain wo con IMPRESSION: No acute intracranial process seen.
--- NOTE | ~2020-10-26 | XR_ITS ---
EXAMINATION: LEFT SHOULDER AND CERVICAL SPINE CLINICAL INFORMATION: Radiculopathy COMPARISON: None TECHNIQUE: Three-view cervical spine and 4 view left shoulder FINDINGS: 4 views of the left shoulder do not demonstrate any evidence of acute fracture or dislocation. There is some superior subluxation of the humeral head in the glenohumeral joint which may be related to some degree of rotator cuff injury. No calcific tendinitis. No widening of the coracoclavicular space is seen. There is mild spurring inferior aspect of the glenohumeral joint. There is some spurring seen about the acromioclavicular joint. 3 views of the cervical spine performed. No abnormal prevertebral soft tissue swelling is seen. No acute cervical spine fracture is noted. Disc space narrowing is seen C4-C7 with marginal spurring. A density seen overlying the posterior aspect of the C4-5 disc space and may represent calcified disc. XR/XR shoulder LT min 2V IMPRESSION: Cervical spondylosis C4-C7. Mild degenerative change of the left shoulder as described.
--- NOTE | ~2020-10-26 | XR_ITS ---
EXAMINATION: LEFT SHOULDER AND CERVICAL SPINE CLINICAL INFORMATION: Radiculopathy COMPARISON: None TECHNIQUE: Three-view cervical spine and 4 view left shoulder FINDINGS: 4 views of the left shoulder do not demonstrate any evidence of acute fracture or dislocation. There is some superior subluxation of the humeral head in the glenohumeral joint which may be related to some degree of rotator cuff injury. No calcific tendinitis. No widening of the coracoclavicular space is seen. There is mild spurring inferior aspect of the glenohumeral joint. There is some spurring seen about the acromioclavicular joint. 3 views of the cervical spine performed. No abnormal prevertebral soft tissue swelling is seen. No acute cervical spine fracture is noted. Disc space narrowing is seen C4-C7 with marginal spurring. A density seen overlying the posterior aspect of the C4-5 disc space and may represent calcified disc. XR/XR cervical spine 2V IMPRESSION: Cervical spondylosis C4-C7. Mild degenerative change of the left shoulder as described.
== END 2020-10-26 10:34 | disposition home or self-care (01) ==
LOC: HO.CT 10:33
PROVIDERS: PCP Internal Medicine; Visit Provider Internal Medicine
DX: R29.898 Other symptoms and signs involving the musculoskeletal system (principal); M54.12 Radiculopathy, cervical region
CPT/HCPCS: 70450; 72040; 73030

== ENCOUNTER 2020-11-02 09:39 | Outpatient (REF) | payer MEDICARE, SELFPAY ==
--- NOTE | 2020-11-02 17:51 | PFT_ITS ---
INDICATION: Hypoxemia. SPIROMETRY: The FEV1 to FVC of 51% with an FEV1 of 0.76 L, which is 29% predicted, and FVC of 1.47 L, which is 43% predicted. The patient did have a significant response to bronchodilators with an improvement of the FVC by 12%. The maximum voluntary ventilation 34% predicted. LUNG VOLUMES: Total lung capacity 87% predicted with an expiratory reserve volume of 26% predicted and residual volume 148% predicted. DIFFUSION CAPACITY: DLCO 34% predicted. COMPARISONS: None. INTERPRETATION: There is an obstructive ventilatory defect consistent with very severe COPD. There was a significant response to bronchodilators noted. The patient also has severe decrease in maximum voluntary ventilation secondary to deconditioning and also worsening dynamic inspiratory capacity. Lung volumes with significant air trapping due to COPD and severe diffusion impairment secondary to emphysema and other parenchymal lung conditions and/or pulmonary vascular conditions should be considered. Mo Fitch MD MR/MODL / [id number]
== END 2020-11-02 09:40 | disposition home or self-care (01) ==
LOC: HO.RESP 09:39
PROVIDERS: PCP Internal Medicine; Visit Provider Internal Medicine
DX: J98.4 Other disorders of lung (principal); R09.02 Hypoxemia; Z87.891 Personal history of nicotine dependence
CPT/HCPCS: 94060; 94727; 94729

== ENCOUNTER → 2020-11-30 10:45 | Outpatient (BNVA) | payer MEDICARE, SELFPAY | PROVIDERS: PCP Internal Medicine; Visit Provider Internal Medicine | DX: J44.9 Chronic obstructive pulmonary disease, unspecified (principal); R09.02 Hypoxemia; Z87.891 Personal history of nicotine dependence | CPT/HCPCS: 99212 ==

== ENCOUNTER 2021-01-03 09:00 | Outpatient (RCR) | payer MEDICARE, SELFPAY ==
--- NOTE | 2020-11-17 11:59 | MHC.PT.EP ---
[facility] [place] Office [place] Office [place] Office [address] Ian Ni [address] [phone] F: [phone] F: [phone] F: [phone] F: [phone] Physical Therapy Plan of Care Date of Evaluation: Date of Surgery: NA Diagnosis: LEFT ARM PAIN Assessment: Kaycee is a pleasant 70 yo female who recently was DCed from statin med due to diffuse body pain. Her chief complaint is continued pain in left shoulder with decreased ability to use the arm for ADLs. Upon exam, impairments include decreased ROM, decreased strength, altered posture and positioning, increased pain and (+) rotator cuff special testing indicating either significant tendonitis or possible RTC tear. Functional limitations include inability to utilize left UE for ADLs and homemaking tasks, inability to push, pull or lift using left arm, decreased participation in community and recreational activities and disrupted sleep. IF ROM DOES NOT BEGIN TO IMPROVE IN 1 WEEK, RECOMMEND ORTHO CONSULT FOR POSSIBLE RTC TEAR. Frequency and Duration: The patient will be seen 2 x week for 6 weeks Short Term Goals: initiate HEP and promote self management of symptoms in 2 weeks Half-Way Goals: Full, pain free ROM in 6 weeks Full UE strength, pain free in 6 weeks To perform computer and work tasks without restriction and pain no greater than 2/10 in [address] at minimum of 5# into cabinet at shoulder height in 6 weeks Treatment Plan: Modalities to reduce pain, spasms and effusion. Manual therapy to restore motion and function. Therapeutic exercise to improve strength and flexibility. Neuromuscular re-education for posture and balance. Therapeutic activities to return to functional activities of daily living. Electronically signed by: Thais Branham PT, DPT Please sign and return to therapist. Thank you for your referral.
--- NOTE | 2021-01-03 09:44 | MHC.PT.DC ---
[facility] [place] Office [place] Office [place] Office [address] Ian Ni [address] [facility] [phone] F: [phone] F: [phone] F: [phone] F: [phone] Physical Therapy Discharge Report Diagnosis: LEFT ARM PAIN Date of Surgery: NA Date of Evaluation: 11/16/20 Date of Discharge: 01/03/21 Treatments to Date: 11 Cancellations to Date: 2 No Shows to Date: 0 Discharge Status: Achieved Goals Improved Function Independent with HEP Discharge Summary: Mayte was D/C from therapy today (01/03/2021). She has been able to return to work and complete her computer tasks without pain. Mayte has accomplished most of her goals and has made some significant progress in her shoulder ROM and strength. However, she is still limited actively in her shoulder ROM and is following up with ortho on the 01/13/2021. Pt was instructed to call us if she has any further questions. Electronically signed by: Thais Branham PT, DPT Please sign and return to therapist. Thank you for your referral.
== END 2021-01-03 12:54 | disposition home or self-care (01) ==
LOC: HO.PT 09:00
PROVIDERS: PCP Internal Medicine; Visit Provider Internal Medicine
DX: R29.898 Other symptoms and signs involving the musculoskeletal system (principal)
CPT/HCPCS: 97110; 97140; 97150; 97161; 97162; 97530; 97535

== ENCOUNTER → 2021-01-29 10:55 | Outpatient (BNVA) | payer MEDICARE, SELFPAY | PROVIDERS: PCP Internal Medicine; Visit Provider Internal Medicine | DX: J44.9 Chronic obstructive pulmonary disease, unspecified (principal); R09.02 Hypoxemia; Z87.891 Personal history of nicotine dependence | CPT/HCPCS: 99212 ==

== ENCOUNTER 2021-02-15 08:53 | Outpatient (REF) | payer MEDICARE, SELFPAY ==
[2021-02-15 10:16] LABS: Estimated Average Glucose 100 mg/dL; Hemoglobin A1c % 5.1 %
[2021-02-15 11:03] LABS: Alanine Aminotransferase 22 U/L (0-31); Alkaline Phosphatase 90 U/L (39-117); Anion Gap 9 (12-20); Aspartate Amino Transferase 24 U/L (5-31); Bilirubin Total 0.3 mg/dL (0.0-1.0); Blood Urea Nitrogen 15 mg/dL (9-16); Calcium 9.8 mg/dL (8.4-10.2); Carbon Dioxide 36 mmol/L (22-29); Chloride 102 mmol/L (96-108); Cholesterol 183 mg/dL; Estimated Glomerular Filt Rate > 60; Glucose Fasting 94 mg/dL (60-99); HDL Cholesterol 69 mg/dL; LDL Cholesterol Calculated 103 mg/dl; Potassium 4.9 mmol/L (3.3-5.1); Sodium 142 mmol/L (135-145); Triglycerides 58 mg/dL
== END 2021-02-15 08:54 | disposition home or self-care (01) ==
LOC: HO.LAB 08:53
PROVIDERS: PCP Internal Medicine; Visit Provider Internal Medicine
DX: E78.5 Hyperlipidemia, unspecified (principal); R73.9 Hyperglycemia, unspecified; T46.6X5A Adverse effect of antihyperlipidemic and antiarteriosclerotic drugs, initial encounter
CPT/HCPCS: 36415; 80053; 80061; 83036

== ENCOUNTER 2021-03-30 10:45 | Outpatient (REF) | payer MEDICARE, SELFPAY ==
--- NOTE | ~2021-03-30 | MM_ITS ---
EXAMINATION: MM SCREENING DIGITAL BREAST TOMOSYNTHESIS, BILATERAL CLINICAL INFORMATION: Screening. Asymptomatic. Prior outside mammography from [facility] unavailable. Age 71. No known family history breast cancer. The lifetime risk of breast cancer based on the Tyrer-Cuzick Model is 4%. COMPARISON: None (current study represents new baseline exam). TECHNIQUE: Digital breast tomosynthesis is performed in both the craniocaudal and mediolateral oblique views along with computer-aided detection (CAD). Synthesized 2D images are generated from the tomosynthesis. FINDINGS: There are scattered areas of fibroglandular density (ACR BI-RADS breast composition Category b). Right breast shows no significant mass or architectural abnormality. There is a large dermal lesion overlying the mid inferior right breast. Neither breast shows abnormal calcifications. The bilateral axilla and skin contours are unremarkable. Left breast has an incidental intramammary node posterior upper outer quadrant. There is probable benign parenchymal asymmetry posterior upper left breast, likely extending beyond filed of view on the left CC view. Patient will be recalled for additional imaging to fully characterize in this new baseline exam. MM/MM tomosynthesis screening BI IMPRESSION: 1. Left: Parenchymal asymmetry posterior upper outer quadrant. 2. Right: No mammographic evidence of malignancy. ASSESSMENT: BI-RADS 0: Incomplete - Need Additional Imaging Evaluation RECOMMENDATION: 1. Additional views of the left breast (exaggerated CC, spot MLO). 2. Targeted ultrasound if warranted after review of the additional views. 3. Radiology department staff will contact the patient for additional imaging. This patient's information was entered into a reminder system with a target due date for their next mammogram.
== END 2021-03-30 10:46 | disposition home or self-care (01) ==
LOC: HO.MAMMO 10:45
PROVIDERS: Visit Provider Internal Medicine
DX: Z12.31 Encounter for screening mammogram for malignant neoplasm of breast (principal)
CPT/HCPCS: 77063; 77067

== ENCOUNTER 2021-04-06 09:18 | Outpatient (REF) | payer MEDICARE, SELFPAY ==
--- NOTE | ~2021-04-06 | US_ITS ---
EXAMINATION: US DIAGNOSTIC ULTRASOUND BREAST, LEFT CLINICAL INFORMATION: Density. COMPARISON: Mammography of same day and March 30, 2021. TECHNIQUE: Ultrasound of the breast is performed with real-time trujillo scale imaging and color Doppler. FINDINGS: Targeted ultrasound evaluation of the region in the upper outer aspect of the left breast did not demonstrate any abnormal cystic or solid region. No area of abnormal distal sound shadowing is seen. No edematous change within the tissue is noted. Adjacent lymph node appears normal. Recommend 6 month follow-up left breast mammography to ensure stability. Results are discussed with the patient at time of visit. US/US breast LT limited IMPRESSION: Left breast density for which 6 month follow-up examination is recommended. ASSESSMENT: BI-RADS 3: Probably Benign RECOMMENDATION: Diagnostic mammography in 6 months.
--- NOTE | ~2021-04-06 | MM_ITS ---
EXAMINATION: MM DIAGNOSTIC DIGITAL TOMOSYNTHESIS, LEFT US TARGETED BREAST, LEFT CLINICAL INFORMATION: Asymmetric density upper outer aspect of the left breast. COMPARISON: Mammography: 03/30/2021 TECHNIQUE: Digital breast tomosynthesis is performed. 2D images are generated from the tomosynthesis. The following views are obtained: Exaggerated craniocaudal view and spot compression mediolateral oblique view. FINDINGS: There are scattered areas of fibroglandular density (ACR BI-RADS breast composition category B). The additional views compress out the region of density with some residual density present. Targeted ultrasound evaluation of the region in the upper outer aspect of the left breast did not demonstrate any abnormal cystic or solid region. No area of abnormal distal sound shadowing is seen. No edematous change within the tissue is noted. Adjacent lymph node appears normal. Recommend 6 month follow up left breast mammography to ensure stability. Results are discussed with the patient at time of visit. MM/MM tomosynthesis added views L IMPRESSION: Left breast density for which 6 month follow up examination is recommended. ASSESSMENT: BI-RADS 3: Probably benign RECOMMENDATION: Diagnostic mammography in 6 months. This patient's information was entered into a reminder system with a target due date for their next mammogram.
== END 2021-04-06 09:19 | disposition home or self-care (01) ==
LOC: HO.MAMMO 09:18
PROVIDERS: Visit Provider Internal Medicine
DX: N64.89 Other specified disorders of breast (principal)
CPT/HCPCS: 76642; 77061; 77065

== ENCOUNTER → 2021-05-01 10:28 | Outpatient (BNVA) | payer MEDICARE, SELFPAY | PROVIDERS: PCP Internal Medicine; Visit Provider Internal Medicine | DX: J44.9 Chronic obstructive pulmonary disease, unspecified (principal); R09.02 Hypoxemia; Z87.891 Personal history of nicotine dependence | CPT/HCPCS: 99212 ==

== ENCOUNTER → 2021-05-21 07:55 | Outpatient (BNVA) | payer MEDICARE, SELFPAY | PROVIDERS: PCP Internal Medicine; Referring Provider Internal Medicine; Visit Provider Nurse Practitioner Family | DX: Z12.11 Encounter for screening for malignant neoplasm of colon (principal); J44.9 Chronic obstructive pulmonary disease, unspecified | CPT/HCPCS: 99202 ==

== ENCOUNTER → 2021-06-07 09:55 | Outpatient (BNVA) | payer MEDICARE, SELFPAY | PROVIDERS: PCP Internal Medicine; Visit Provider Internal Medicine | DX: J44.9 Chronic obstructive pulmonary disease, unspecified (principal); R09.02 Hypoxemia; Z87.891 Personal history of nicotine dependence | CPT/HCPCS: 99212 ==

== ENCOUNTER 2021-07-02 07:41 | Outpatient (REF) | payer MEDICARE, SELFPAY ==
[2021-07-02 08:16] LABS: COVID-19 Test Negative (Negative); IDNOW Serial# 16C4AD1C
== END 2021-07-02 07:42 | disposition home or self-care (01) ==
LOC: HO.LAB 07:41
PROVIDERS: Visit Provider Internal Medicine
DX: Z20.822 Contact with and (suspected) exposure to COVID-19 (principal)
CPT/HCPCS: 87635; C9803